=== PATIENT | female | born 1940 ===

== ENCOUNTER 2018-01-20 08:25 | Day surgery (SDC) | payer MEDICARE, MEDICAID ==
[2018-01-20 09:45] VITALS: BMI 30.2
[2018-01-20] MEDS ORDERED: Lactated Ringer's 500 ML IV ONE (10:09)
[2018-01-20] MEDS ORDERED: Etomidate 20 mg/10ml Inj IV ONE (11:40)
[2018-01-20] MEDS ORDERED: Midazolam 2 MG/2 ML VIAL ONE (11:41)
[2018-01-20] MEDS ORDERED: Propofol 10 mg/ml Inj (20 ML) ONE (11:41)
[2018-01-20 12:22] VITALS: BP 156/67; PULSE 58; RESP 16; TEMP 97.3; O2SAT 100
== END 2018-01-20 12:34 | disposition home or self-care (01) ==
LOC: H.ENDO 08:25
PROVIDERS: ATTEND Internal Medicine Gastroenterology
DX: Z12.11 Encounter for screening for malignant neoplasm of colon (principal); E11.9 Type 2 diabetes mellitus without complications; I10 Essential (primary) hypertension; K57.30 Diverticulosis of large intestine without perforation or abscess without bleeding; K64.8 Other hemorrhoids
CPT/HCPCS: 45378; 82948; J2001; J2250; J2704; J7120